=== PATIENT | male | born 1990 | race Caucasian/White ===

== ENCOUNTER 2020-07-28 10:51 | Emergency (ER) | payer OTHER ==
[~2020-07-28] VITALS: Ht 188 cm; Wt 88.5 kg
[~2020-07-28 10:51] MED LIST: NOHOMEMEDICATIONS
[2020-07-28 10:55] VITALS: BP 155/92
[2020-07-28] MEDS ORDERED: KEFLEX500 M1 PO (11:39)
== END 2020-07-28 11:45 | disposition home or self-care (01) ==
LOC: ER 10:51
DX: S61.412A Laceration without foreign body of left hand, initial encounter (principal); F17.210 Nicotine dependence, cigarettes, uncomplicated; W26.8XXA Contact with other sharp object(s), not elsewhere classified, initial encounter; Y93.89 Activity, other specified; Y92.89 Other specified places as the place of occurrence of the external cause; Y99.8 Other external cause status